=== PATIENT | female | born 1965 | race American Indian/Alaskan Native ===

== ENCOUNTER 2016-10-16 09:14 | Outpatient (CLI) | payer BC ==
--- NOTE | 2016-10-16 10:37 | Mammography Report ---
BONE DENSITY STUDY: DEFINITIONS: BMD = Bone Mineral Density T-score = BMD related to mean peak bone mass of young adult (mean expressed in Standard Deviation) Z-score = Age matched BMD expressed in SD World Health Organization (WHO) Diagnostic Criteria Normal T-score > -1 SD Osteopenia T-score between -1 and -2.4 SD Osteoporosis T-score -2.5 SD or below FINDINGS: The weighted average BMD of lumbar spine L1-L4 is 1.036 with a T-score of -0.1. The weighted average BMD of hip is 1.041 with a T-score of 0.8. IMPRESSION: The patient's T-score is diagnostic for normal bone density and low relative risk for fracture. NOTE: BMD is not the only risk factor for fracture; also consider factors such as the patient's age, risk of falling, previous osteoporotic fracture, family history of osteoporotic fractures, current smoker, and low body weight. Coates's triangle is a region of interest in femur, predominantly of trabecular bone. It is not a true anatomic site, and ISCD does not recommend its use clinically.
== END 2016-10-16 09:15 | disposition home or self-care (01) ==
LOC: MAMMO 09:14
PROVIDERS: ATTEND Internal Medicine
DX: Z78.0 Asymptomatic menopausal state (principal)
CPT/HCPCS: 77080

== ENCOUNTER 2019-01-08 09:19 | Outpatient (CLI) | payer BC ==
--- NOTE | 2019-01-08 11:13 | Mammography Report ---
BONE DEXA CLINICAL: Postmenopausal. TECHNIQUE: 2 site bone DEXA performed on an Hologic scanner. FINDINGS: The average BMD of the lumbar spine L1-L4 is 1.001g/cm squared with a T score of -0.4 and a Z score o f -0.3. This compares to 1.036g/cm squared on the last exam and represents a -3.4 percent change from the [previous baseline]. The average BMD of the left hip is 1.050 g/cm squared with a T score of +0.9and a Z score of +0.6. Th is compares to 1.041 g/cm squared on the last exam and represents a +1.0 percent change from the [pre vious baseline]. IMPRESSION: 1. WHO classification: Normal with average fracture risk based on spine measurements. 2. WHO classification normal with average fracture risk based on left hip measurements. 3. A modest decline in spine BMD and a modest improvement in left hip BMD compared to the last exam. RECOMMENDATION: Clinical correlation and routine screening. Definitions: BMD equal bone mineral density T score = BMD related to peak bone mass of young adult ([place] expressed an standard deviation) Z score = age-matched BMD expressed in SD World health organization (WHO) diagnostic criteria Normal T score greater than equal to 1 standard deviation Osteopenia T score between -1 and -2.4 standard deviation Osteoporosis T score -2.5 standard deviation or below. Note: BMD is not the only risk factor for fracture; also consider factors such as the patient's age, risk of falling, previous osteoporotic fracture, family history of osteoporotic fractures, current sm oker and low body weight. Z scores are not calculated if greater than 80 years of age. Signer Name: Dajuan Luong MD Signed: 01/08/2019 11:09 AM Workstation Name: [id number]
== END 2019-01-08 09:20 | disposition home or self-care (01) ==
LOC: MAMMO 09:19
PROVIDERS: ATTEND Internal Medicine
DX: Z78.0 Asymptomatic menopausal state (principal)
CPT/HCPCS: 77080

== ENCOUNTER 2021-01-20 10:04 | Outpatient (CLI) | payer BC ==
--- NOTE | 2021-01-20 11:19 | Mammography Report ---
DEXA BONE DENSITY SCAN INDICATION / CLINICAL INFORMATION: ASYMPTOMATIC POSTMENOPAUSAL STATUS. 55 years Female COMPARISON: None available. LUMBAR SPINE, L1-L4: - Bone mineral density (BMD) = 0.971 g/cm2. - T-score = -0.7 - Z-score = -0.4 Change (%) since most recent prior (if available): None available. LEFT HIP, NECK : - Bone mineral density (BMD) = 0.896 g/cm2. - T-score = 0.4 - Z-score = 0.4 Change (%) since most recent prior (if available): None available. IMPRESSION: 1. WHO Classification: Normal bone density. Fracture Risk: Not Increased. 2. 10-Year Fracture Risk (FRAX) = Major Osteoporotic Not reported.% / Hip: Not reported.% FRAX generally not reported for patients with normal or osteoporotic BMD, in [id number] shawn ents younger than age 50, or in patients undergoing pharmacotherapy BMD Reporting Guidelines (ISCD, 2015) BMD Reporting in Postmenopausal Women and in Men Age 50 and Older - T-scores are preferred. - The WHO densitometric classification is applicable. BMD Reporting in Females Prior to Menopause and in Males Younger Than Age 50 - Z-scores, not T-scores, are preferred. This is particularly important in children. - A Z-score of -2.0 or lower is defined as below the expected range for age, and a Z-score above -2.0 is within the expected range for age. - Osteoporosis cannot be diagnosed in men under age 50 on the basis of BMD alone. - The WHO diagnostic criteria may be applied to women in the menopausal transition. http://www.iscd.org/official-positions/0283-rkmx-jhfvhate-positions-adult/ Signer Name: Jaime Zuniga MD Signed: 01/20/2021 11:15 AM Workstation Name: [id number]
== END 2021-01-20 10:05 | disposition home or self-care (01) ==
LOC: MAMMO 10:04
PROVIDERS: ATTEND Internal Medicine
DX: Z13.820 Encounter for screening for osteoporosis (principal); M54.16 Radiculopathy, lumbar region; Z78.0 Asymptomatic menopausal state
CPT/HCPCS: 77080